=== PATIENT | female | born 1985 | race Caucasian/White ===

== ENCOUNTER 2017-03-28 11:48 | Inpatient (IN) | payer MEDICAID ==
[2017-03-28] MEDS ORDERED: CARBOPROST 250 MCG INJ IM ×2 (12:30→21:00)
[2017-03-28] MEDS ORDERED: METHYLERGONOVINE 0.2 MG INJ IM ×2 (12:30→21:00)
[2017-03-28] MEDS ORDERED: MISOPROSTOL 200 MCG TAB PR ×2 (12:30→21:00)
[2017-03-28] MEDS ORDERED: OXYTOCIN 30 UNITS/LR 500 ML IV (12:30)
[2017-03-28] MEDS: LACTATED RINGER'S 1,000 ML IV ×2 (12:47→14:02)
[2017-03-28 13:10] LABS: ADD MAN DIFF? NO
[2017-03-28 13:12] LABS: BASOPHILS % 0.4 % (0.0-2.0); EOSINOPHILS # 0.1 10^3/ul (0.0-0.5); EOSINOPHILS % 1.5 % (0.0-7.0); HEMATOCRIT 30.9 % (37.0-47.0); HEMOGLOBIN 10.3 g/dl (12.0-16.0); LYMPHOCYTES # 1.6 10^3/ul (0.8-2.9); MEAN CORPUSCULAR HEMOGLOBIN 27.9 pg (29.0-33.0); MEAN CORPUSCULAR HGB CONC 33.3 g/dl (32.0-37.0); MEAN CORPUSCULAR VOLUME 83.7 fl (82.0-101.0); MEAN PLATELET VOLUME 11.9 fl (7.4-10.4); MONOCYTE # 0.5 10^3/ul (0.3-0.9); MONOCYTES % 5.7 % (0.0-11.0); NEUTROPHILS % 74.2 % (39.0-77.0); NUCLEATED RED BLOOD CELLS% 0.2 /100WBC (0.0-0.0); PLATELET COUNT 239 10^3/UL (140-415); RED BLOOD COUNT 3.69 10^6/ul (4.20-5.40); RED CELL DISTRIBUTION WIDTH 14.3 % (11.5-14.5)
[2017-03-28 13:12] LABS: WHITE BLOOD COUNT 9.5 10^3/ul (4.8-10.8)
[2017-03-28 13:27] LABS: INR 0.91; PROTIME 12.3 Sec (11.9-14.9)
[2017-03-28 13:28] LABS: PARTIAL THROMBOPLASTIN TIME 27.5 Sec (25.0-35.0)
[2017-03-28 14:45] LABS: HEPATITIS B SURFACE ANTIGEN NEGATIVE (NEGATIVE)
[2017-03-28] MEDS ORDERED: morphine SULFATE/PF (10 MG/10 ML) INJ (16:44)
[2017-03-28] MEDS ORDERED: FENTAnyl 50 MCG/ML VIAL (16:44)
[2017-03-28] MEDS ORDERED: ONDANSETRON 4 MG INJ (17:11)
[2017-03-28] MEDS ORDERED: DEXAMETHASONE 4 MG/ML 1 ML INJ (17:12)
[2017-03-28] MEDS ORDERED: OXYTOCIN 10 UNIT INJ (17:17)
[2017-03-28] MEDS ORDERED: KETOROLAC 30 MG INJ (18:15)
[2017-03-28] MEDS: KETOROLAC 30 MG INJ IV (18:17)
[2017-03-28] MEDS: OXYTOCIN 30 UNITS/LR 500 ML IV ×2 (18:24→20:58)
[2017-03-28] MEDS ORDERED: HYDROmorphONE 0.5 MG/0.5 ML SYG IV (18:30)
[2017-03-28] MEDS ORDERED: ONDANSETRON 4 MG INJ IV (18:30)
[2017-03-28] MEDS ORDERED: NALBUPHINE HCL (10 MG/1 ML) INJ IV (18:30)
[2017-03-28] MEDS ORDERED: ZOLPIDEM 5 MG TAB PO (18:30)
[2017-03-28] MEDS ORDERED: DIPHENHYDRAMINE 50 MG INJ IV (18:30)
[2017-03-28] MEDS ORDERED: NALOXONE (0.4 MG/ML) INJ IV (18:30)
[2017-03-28] MEDS: CEFAZOLIN 2 GM/50 ML (PMX) 50 ML IV (19:06)
[2017-03-28 19:52] LABS: RAPID PLASMA REAGIN NONREACTIVE (NR)
[2017-03-28] MEDS: SENNA/DOCUSATE NA (8.6MG/50MG) TAB PO (21:00)
[2017-03-28] MEDS ORDERED: NA PHOSPHATE/BIPHOS 133 ML ENEMA PR (21:00)
[2017-03-28] MEDS: HYDROmorphONE 0.5 MG/0.5 ML SYG IV (21:48)
[2017-03-29] MEDS: LACTATED RINGER'S 1,000 ML IV ×4 (00:35→20:33)
[2017-03-29] MEDS: CEFAZOLIN 2 GM/50 ML (PMX) 50 ML IV ×3 (00:35→16:10)
[2017-03-29] MEDS: CLINDAMYCIN 300 MG CAP PO ×3 (06:00→18:20)
[2017-03-29] MEDS: KETOROLAC 30 MG INJ IV ×2 (07:58→16:45)
[2017-03-29] MEDS: LANOLIN 7 GM TUBE TOP (07:58)
[2017-03-29 10:52] LABS: ADD MAN DIFF? NO
[2017-03-29 10:55] LABS: BASOPHILS % 0.2 % (0.0-2.0); EOSINOPHILS # 0.1 10^3/ul (0.0-0.5); EOSINOPHILS % 0.6 % (0.0-7.0); HEMATOCRIT 25.8 % (37.0-47.0); HEMOGLOBIN 8.5 g/dl (12.0-16.0); LYMPHOCYTES # 1.6 10^3/ul (0.8-2.9); MEAN CORPUSCULAR HEMOGLOBIN 27.3 pg (29.0-33.0); MEAN CORPUSCULAR HGB CONC 32.9 g/dl (32.0-37.0); MEAN PLATELET VOLUME 11.8 fl (7.4-10.4); MONOCYTE # 0.6 10^3/ul (0.3-0.9); MONOCYTES % 6.2 % (0.0-11.0); NEUTROPHIL # 7.4 10^3/ul (1.6-7.5); NEUTROPHILS % 76.3 % (39.0-77.0); PLATELET COUNT 207 10^3/UL (140-415); RED BLOOD COUNT 3.11 10^6/ul (4.20-5.40); RED CELL DISTRIBUTION WIDTH 14.4 % (11.5-14.5)
[2017-03-29 10:55] LABS: WHITE BLOOD COUNT 9.7 10^3/ul (4.8-10.8)
[2017-03-29] MEDS: SENNA/DOCUSATE NA (8.6MG/50MG) TAB PO ×2 (12:03→19:51)
[2017-03-29] MEDS: HYDROmorphONE 0.5 MG/0.5 ML SYG IV (13:09)
[2017-03-29] MEDS: OXYCODONE/ACETAMINOPHEN (5/325) TAB PO (18:21)
[2017-03-29] MEDS: HYDROCODONE/APAP (5/325) TAB PO (19:51)
[2017-03-29] MEDS: IBUPROFEN 800 MG TAB PO (22:32)
[2017-03-30] MEDS: CLINDAMYCIN 300 MG CAP PO ×5 (00:11→23:31)
[2017-03-30] MEDS: LACTATED RINGER'S 1,000 ML IV (04:33)
[2017-03-30] MEDS: IBUPROFEN 800 MG TAB PO ×3 (05:39→21:33)
[2017-03-30] MEDS: OXYCODONE/ACETAMINOPHEN (5/325) TAB PO ×3 (06:40→16:38)
[2017-03-30] MEDS: SENNA/DOCUSATE NA (8.6MG/50MG) TAB PO ×2 (09:34→20:49)
[2017-03-30] MEDS: BISACODYL 10 MG SUPP PR ×2 (18:07→18:08)
[2017-03-31] MEDS: CLINDAMYCIN 300 MG CAP PO ×3 (05:06→17:35)
[2017-03-31] MEDS: IBUPROFEN 800 MG TAB PO ×2 (05:06→14:14)
[2017-03-31] MEDS: SENNA/DOCUSATE NA (8.6MG/50MG) TAB PO (08:05)
[2017-03-31] MEDS: HYDROCODONE/APAP (5/325) TAB PO ×3 (08:05→17:36)
[2017-03-31] MEDS: MEASLES,MUMPS,RUBELLA VACCINE INJ SC* (09:00)
[2017-03-31] MEDS: DIPHTH/TET/ACEL PERTUSS (ADULT) 0.5 ML VIAL IM* (09:36)
== END 2017-03-31 18:30 | disposition home or self-care (01) | DRG 766 ==
LOC: L-D 11:48 → PP1 21:09
PROVIDERS: Obstetrics & Gynecology
PROC: 10D00Z1 Extraction of Products of Conception, Low, Open Approach (ICD-10-PCS; principal; 2017-03-28 17:00)
PROC: 3E033VJ Introduction of Other Hormone into Peripheral Vein, Percutaneous Approach (ICD-10-PCS; 2017-03-28 17:00)
DX: O34.211 Maternal care for low transverse scar from previous cesarean delivery (principal); Z37.0 Single live birth; Z3A.39 39 weeks gestation of pregnancy
CPT/HCPCS: 85025; 85610; 85730; 86592; 86850; 86900; 86901; 87340; 90715; 94760; 99464